=== PATIENT | male | born 1990 | race Caucasian/White ===

== ENCOUNTER 2016-09-01 16:20 | Emergency (ER) | payer BC, OTHER ==
[2016-09-01 16:47] VITALS: BP 137/59; PULSE 61; TEMP 98.5; BMI 27.6
[2016-09-01] MEDS ORDERED: AZITHROMYCIN 1 GM PACKET PO ONE (17:05)
[2016-09-01] MEDS ORDERED: metroNIDAZOLE 250 MG TABLET PO ONE (17:05)
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
[2016-09-01 19:51] LABS: HIV 1 & 2 AB NEGATIVE; HIV 1 AGp24 NEGATIVE
== END 2016-09-01 18:36 | disposition home or self-care (01) ==
LOC: FER 16:20
DX: Z11.3 Encounter for screening for infections with a predominantly sexual mode of transmission (principal)
CPT/HCPCS: 36415; 87389; 87491; 87591; 99281-25

== ENCOUNTER 2017-02-10 22:24 | Emergency (ER) | payer OTHER, BC ==
[2017-02-10 22:44] VITALS: BP 152/61; PULSE 79; TEMP 97.8; BMI 26.4
[2017-02-11] MEDS ORDERED: DIPHTH,PERTUSS(ACELL),TET 0.5 ML DISP.SYRIN IM ONE (00:46)
[2017-02-11 01:08] LABS: BASOPHIL 0.3 % (0-2.0); EOSINOPHIL 1.6 % (0-4.5); MCH 29.6 pg (25.7-33.7); MCHC 34.3 g/dl (32.0-35.9); MEAN CELL VOLUME 86.3 fl (80-96); MEAN PLT VOLUME 8.3 fl (7.5-11.1); NEUTROPHILS 74.4 % (42.8-82.8); PLATELET COUNT 219 K/MM3 (134-434); RDW 13.3 % (11.9-15.9); WHITE BLOOD COUNT 8.5 K/mm3 (4.0-10.0)
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
[2017-02-11 01:34] LABS: ALBUMIN 4.2 g/dl (3.4-5.0); ANION GAP 10 (8-16); BILIRUBIN,TOTAL 0.6 mg/dL (0.2-1.0); CO2 28 mmol/L (21-32); GLUCOSE,RANDOM 87 mg/dL (74-106); SGOT/AST 46 U/L (15-37); SGPT/ALT 64 U/L (12-78)
[2017-02-11 01:35] LABS: ALK PHOS 59 U/L (45-117)
[2017-02-11 01:56] LABS: HIV 1 & 2 AB NEGATIVE; HIV 1 AGp24 NEGATIVE
[2017-02-12 06:08] LABS: HEP B SURFACE AB Reactive (.)
== END 2017-02-11 01:33 | disposition home or self-care (01) ==
LOC: JER 22:24
PROC: 3E0234Z Introduction of Serum, Toxoid and Vaccine into Muscle, Percutaneous Approach (ICD-10-PCS; principal; 2017-02-10)
DX: Z77.21 Contact with and (suspected) exposure to potentially hazardous body fluids (principal); S50.811A Abrasion of right forearm, initial encounter; Y35.891A Legal intervention involving other specified means, law enforcement official injured, initial encounter; Y93.89 Activity, other specified; Y92.9 Unspecified place or not applicable; Y99.0 Civilian activity done for income or pay
CPT/HCPCS: 36415; 73610-TC-RT; 73630-TC-RT; 80053; 85025; 86704; 86706; 87340; 87389; 90715; 99283-25

== ENCOUNTER 2019-01-05 17:01 | Emergency (ER) | payer OTHER, BC ==
--- NOTE | 2019-01-05 17:13 | PDOC ---
Rapid Medical Evaluation Chief Complaint: Injury Time Seen by Provider: 01/05/19 17:06 Medical Evaluation: Allergies Allergy/AdvReac Type Severity Reaction Status Date / Time No Known Allergies Allergy Verified 04/01/16 15:26 Vital Signs Temp Pulse Resp BP Pulse Ox 99.1 F 18 L 20 144/80 96 01/05/19 17:10 01/05/19 17:10 01/05/19 17:10 01/05/19 17:10 01/05/19 17:10 01/05/19 17:12 Pt c/o: right knee pain and right 5th knuckle abrasion. on duty with [employer] Pt on brief exam: mild erythema to rt patella, no crepitus/deformity, or ecchymosis to rt patella, FROM , small abrasion to rt 5th mcp joint dorsally Pt ordered for: none pt to proceed to the ED Discharge Disposition - Diagnosis Right knee pain - Referrals - Patient Instructions - Post Discharge Activity
[2019-01-05 17:24] VITALS: BP 144/80; PULSE 18; TEMP 99.1; BMI 27.7
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
== END 2019-01-05 17:55 | disposition home or self-care (01) ==
LOC: JERFT 17:01
DX: M25.561 Pain in right knee (principal); Y35.891A Legal intervention involving other specified means, law enforcement official injured, initial encounter; Y93.89 Activity, other specified; Y92.89 Other specified places as the place of occurrence of the external cause; Y99.0 Civilian activity done for income or pay
CPT/HCPCS: 99281-25

== ENCOUNTER 2019-02-16 18:29 | Emergency (ER) | payer OTHER, BC ==
--- NOTE | 2019-02-16 18:36 | PDOC ---
Rapid Medical Evaluation Time Seen by Provider: 02/16/19 18:34 Medical Evaluation: Allergies Allergy/AdvReac Type Severity Reaction Status Date / Time No Known Allergies Allergy Verified 04/01/16 15:26 02/16/19 18:35 HPI: Possible exposure to body fluid L middle finger no interest in treatment PE: No gross deficits ORDERS: Nothing Discharge Disposition - Diagnosis Exposure to blood or body fluid - Referrals - Patient Instructions - Post Discharge Activity
[2019-02-16 18:43] VITALS: BP 125/78; PULSE 76; TEMP 98.2; BMI 28.2
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
== END 2019-02-16 20:15 | disposition home or self-care (01) ==
LOC: JERFT 18:29 → JER 18:29 → JERFT 20:15
DX: Z77.21 Contact with and (suspected) exposure to potentially hazardous body fluids (principal); Y35.891A Legal intervention involving other specified means, law enforcement official injured, initial encounter; Y99.0 Civilian activity done for income or pay
CPT/HCPCS: 99281-25

== ENCOUNTER 2019-04-19 19:20 | Emergency (ER) | payer OTHER, BC ==
[2019-04-19 19:36] VITALS: BP 133/82; PULSE 75; TEMP 98.8; BMI 27.6
[2019-04-19] MEDS ORDERED: DIPHTH,PERTUSS(ACELL),TET 0.5 ML DISP.SYRIN IM ONE (19:45)
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
== END 2019-04-19 20:06 | disposition home or self-care (01) ==
LOC: JERFT 19:20
PROC: 3E0234Z Introduction of Serum, Toxoid and Vaccine into Muscle, Percutaneous Approach (ICD-10-PCS; principal; 2019-04-19)
DX: S60.812A Abrasion of left wrist, initial encounter (principal); Y35.811A Legal intervention involving manhandling, law enforcement official injured, initial encounter; Y93.89 Activity, other specified; Y92.89 Other specified places as the place of occurrence of the external cause; Y99.0 Civilian activity done for income or pay
CPT/HCPCS: 99281-25

== ENCOUNTER 2023-02-03 11:41 | Emergency (ER) | payer OTHER ==
[2023-02-03 11:58] VITALS: BP 146/86; PULSE 62; RESP 19; TEMP 97.5; BMI 28.2
[2023-02-03] MEDS ORDERED: IBUPROFEN 600 MG TABLET (FP) PO ONE ×2 (12:03→12:40)
[2023-02-03] MEDS ORDERED: ACETAMINOPHEN 500 MG TABLET (FP) PO ONE (12:03)
[2023-02-03] MEDS ORDERED: ACETAMINOPHEN 500 MG TABLET (FP) ONE (12:40)
== END 2023-02-03 13:06 | disposition home or self-care (01) ==
LOC: JERFT 11:41 → JER 11:41 → JERFT 13:06
DX: M25.462 Effusion, left knee (principal)
CPT/HCPCS: 73562-TC-LT-FY; 99283-25